=== PATIENT | male | born 1985 | race Caucasian/White ===

== ENCOUNTER → 2016-07-23 | Outpatient (CLI) | payer BC ==
--- NOTE | 2016-07-26 12:44 | CT ---
EXAM DATE: 07/23/16 PATIENT'S AGE: 31 Patient: CORINA RUBIO Facility: [place], [place] Site . Site : 1985 Study: CT Extremity Left WRIST WO CONT [id number] 5:55:49 PM Ordering Physician: Bruno Keith Final Report: HISTORY: Navicular fracture. Left wrist injury 04/02/2017. Technique: CT left wrist without contrast. Comparison: Radiographs 05/19/2016, 04/25/2016. 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 Portions of the fracture margins are sclerotic. No mature osseous bridging. A few small osseous fragments at the fracture margin. Mild volar tilt of the distal pole of the scaphoid results in 2 mm diastasis of the scaphoid fracture fragments dorsally. Subtle linear lucency through portions of the proximal triquetrum bone. No other fracture. Small osteophytes of the distal radius at the radioscaphoid articulation. Joint spaces are otherwise preserved. No erosions. No lytic or blastic bone lesions. Soft tissues are unremarkable. Impression: 1. 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 2. Mild radioscaphoid joint degenerative changes. 2. Mostly healed nondisplaced fracture of the proximal triquetrum. Dictated by Dell Mcdaniel MD @ Jul 26 2016 10:30AM (Electronic Signature) Report Signed by Proxy and Original Signed Document filed in the Medical Record. ANDRES
== END ==
LOC: MW.DI 16:04
PROVIDERS: ATTEND Plastic Surgery
DX: S62.022A Displaced fracture of middle third of navicular [scaphoid] bone of left wrist, initial encounter for closed fracture (principal)
CPT/HCPCS: 73200-26-LT; 73200-LT

== ENCOUNTER → 2016-08-19 | Outpatient (CLI) | payer BC ==
--- NOTE | 2016-08-19 15:49 | CR ---
EXAMINATION: Left hand fifth digit HISTORY: crush injury COMPARISON: None TECHNIQUE: 3 views FINDINGS/IMPRESSION: There is no acute osseous abnormality, dislocation, or fracture identified. Bon e mineralization and joint spaces appear normal.
== END | disposition home or self-care (01) ==
LOC: MW.CHFP 11:55
PROVIDERS: ATTEND Student in an Organized Health Care Education/Training Program
DX: S67.10XA Crushing injury of unspecified finger(s), initial encounter (principal)
CPT/HCPCS: 73140-26-F4; 73140-F4

== ENCOUNTER 2016-09-24 06:29 | Day surgery (SDC) | payer BC ==
--- NOTE | 2016-06-01 16:40 | PCM.PREANE ---
Preanesthetic Assessment - ANESTHESIA/TRANSFUSION/FAMILY HX Anesthesia/Transfusion History: No Prior Transfusion(s), Prior Anesthesia (knee scope, hernia: no anesthesia issues noted) Type of Anesthesia Reaction: Denies: Allergy, Anesthesia Awareness, Excessive Somnolence, Excessive Nausea/Vomiting, Excessive Itching, Excessive Shivering, Malignant Hyperthermia, Malignant Hyperthermia, Family History, Pseudocholinesterase Deficiency, Pseudocholinesterase Deficiency, Family History of, Urinary Retention, Unknown, Other (see below) Family History of Anesthesia Reaction: No Type of Transfusion Reactions: Denies: Anaphylaxis, Bloody Urine, Chills, Fainting/Dizziness, Fever, Flank Pain, Hemolytic Reaction, Hives, Rash, Transfusion Related Acute Lung Injury, Unknown, Other (see below) - REVIEW OF SYSTEMS Constitutional: Reports: no symptoms (obese) [employer] 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) Respiratory: Reports: no symptoms (asthmatic who smokes and chews) Cardiovascular: Reports: no symptoms GI: Reports: no symptoms Other: Reports: none - PHYSICAL ASSESSMENT Height: 1.88 m Weight: 113.398 kg ASA Class: 3 - LAB Values: none - ALLERGIES Allergies/Adverse Reactions: Allergies Allergy/AdvReac Type Severity Reaction Status Date / Time latex Allergy Wheezing Verified 06/01/16 11:25 - BLOOD Blood Available: No Product(s) Available: None - ANESTHESIA PLAN Preop Beta Sandy: No Anesthesia Type Planned: MAC PreAnesthesia Questionnaire HEENT History: Reports: Allergic rhinitis Cardiovascular History: Reports: None Respiratory History: Reports: Asthma Gastrointestinal History: Reports: None Genitourinary History: Reports: None Musculoskeletal History: Reports: Fracture Other Musculoskeletal History: foot Neurological History: Reports: None Psychiatric History: Reports: ADD Endocrine/Metabolic History: Reports: Obesity/BMI 30+ Hematologic History: Reports: None Oncologic (Cancer) History: Reports: None Dermatologic History: Reports: None - Infectious Disease History Infectious Disease History: Reports: Chicken pox - Past Surgical History Head Surgeries/Procedures: Reports: None HEENT Surgical History: Reports: None Cardiovascular Surgical History: Reports: None Respiratory Surgical History: Reports: None GI Surgical History: Reports: Hernia repair/other Other GI Surgeries/Procedures: as a child, unknown type Male Surgical History: Reports: None Endocrine Surgical History: Reports: None Neurological Surgical History: Reports: None Musculoskeletal Surgical History: Reports: Arthroscopic knee Oncologic Surgical History: Reports: None - SUBSTANCE USE Smoking Status *Q: Current Every Day Smoker Tobacco Use Within Last Twelve Months: Smokeless Tobacco Second Hand Smoke Exposure: No Days Per Week of Alcohol Use: 1 Number of Drinks Per Day: 4 Total Drinks Per Week: 4 Recreational Drug Use History: No - HOME MEDS Home Medications: Home Meds Albuterol Sulfate [Proair Hfa] 1 - 2 puff INH ASDIRECTED PRN 05/31/16 [History] Beclomethasone Dipropionate [Qnasl] 1 spray NASBOTH ACLUNCH 05/31/16 [History] Olopatadine HCl 1 drop EYEBOTH BID 05/31/16 [History] Lisdexamfetamine Dimesylate [Vyvanse] 1 tab PO DAILY 06/01/16 [History] - CURRENT (IN HOUSE) MEDS Current Meds: Current Medications Acetaminophen/Hydrocodone Bitart ([place] 325-5 Mg) 1 tab PO Q4H PRN PRN Reason: Pain Bupivacaine HCl/Epinephrine Bitart (Marcaine 0.25%/Epinephrine 1:200,000) 10 ml INJECT ONETIME ONE Stop: 06/02/16 08:57 Lactated Ringer's (Ringers, Lactated) 1,000 mls @ 125 mls/hr IV ASDIRECTED [facility] Cefazolin Sodium/Dextrose 2 gm (/ Premix) 50 mls @ 100 mls/hr IV ONETIME ONE Stop: 06/02/16 09:25
[~2016-09-24 06:29] MED LIST: Acetaminophen/HYDROcodone 325-5 MG Tab PO PRN; Bupivacaine 0.25%/EPINEPHrine 1:200,000 10 ML SDV INJECT ONE; Lactated Ringers 1,000 ML IV SCH; ceFAZolin 2 GM in Premix Bag 1 BAG IV ONE
--- NOTE | 2016-09-24 06:54 | PCM.PREANE ---
Preanesthetic Assessment - Anesthesia/Transfusion/Family Hx Anesthesia History: Prior Anesthesia Without Reaction Family History of Anesthesia Reaction: No Transfusion History: No Prior Transfusion(s) Type of Transfusion Reactions: Denies: Anaphylaxis, Bloody Urine, Chills, Fainting/Dizziness, Fever, Flank Pain, Hemolytic Reaction, Hives, Rash, Transfusion Related Acute Lung Injury, Unknown, Other (see below) - Review of Systems General: No Symptoms Pulmonary: No Symptoms Cardiovascular: No Symptoms Gastrointestinal: No symptoms Neurological: No Symptoms Other: Reports: None - Physical Assessment Height: 1.88 m Weight: 109.769 kg ASA Class: 2 Mental Status: Alert & Oriented x3 Airway Class: Mallampati = 2 Dentition: Reports: Normal Dentition (lower retainer) Thyro-Mental Finger Breadths: 3 Mouth Opening Finger Breadths: 3 ROM/Head Extension: Full Lungs: Clear to auscultation, Normal respiratory effort Cardiovascular: Regular Rate, Regular Rhythm - Allergies Allergies/Adverse Reactions: Allergies Allergy/AdvReac Type Severity Reaction Status Date / Time latex Allergy Nausea Verified 09/22/16 08:16 - Blood Blood Available: No Product(s) Available: None - Anesthesia Plan Pre-Op Medication Ordered: None - Acknowledgements Anesthesia Type Planned: General Anesthesia Pt an Appropriate Candidate for the Planned Anesthesia: Yes Alternatives and Risks of Anesthesia Discussed w Pt/Guardian: Yes Pt/Guardian Understands and Agrees with Anesthesia Plan: Yes PreAnesthesia Questionnaire HEENT History: Reports: Allergic Rhinitis Cardiovascular History: Reports: None, Other (See Below) (h/o hypertension) Respiratory History: Reports: Asthma (mild) Gastrointestinal History: Reports: None Genitourinary History: Reports: None Musculoskeletal History: Reports: Fracture Other Musculoskeletal History: left scafoid bone, foot Neurological History: Reports: None, Other (See Below) (chronic fatigue) Psychiatric History: Reports: ADD Endocrine/Metabolic History: Reports: Obesity/BMI 30+ Hematologic History: Reports: None Oncologic (Cancer) History: Reports: None Dermatologic History: Reports: None - Infectious Disease History Infectious Disease History: Reports: Chicken Pox - Past Surgical History Head Surgeries/Procedures: Reports: None HEENT Surgical History: Reports: None Cardiovascular Surgical History: Reports: None Respiratory Surgical History: Reports: None GI Surgical History: Reports: Hernia Repair/Other Other GI Surgeries/Procedures: as a child, unknown type Male Surgical History: Reports: None Endocrine Surgical History: Reports: None Neurological Surgical History: Reports: None Musculoskeletal Surgical History: Reports: Arthroscopic Knee (right knee) Oncologic Surgical History: Reports: None - SUBSTANCE USE Smoking Status *Q: Current Every Day Smoker Tobacco Use Within Last Twelve Months: Smokeless Tobacco Second Hand Smoke Exposure: No Days Per Week of Alcohol Use: 1 Number of Drinks Per Day: 4 Total Drinks Per Week: 4 Recreational Drug Use History: No - HOME MEDS Home Medications: Home Meds Albuterol Sulfate [Proair Hfa] 1 - 2 puff INH ASDIRECTED PRN 05/31/16 [History] Olopatadine HCl 1 drop EYEBOTH ASDIRECTED PRN 05/31/16 [History] Lisdexamfetamine Dimesylate [Vyvanse] 1 tab PO DAILY 06/01/16 [History] - CURRENT (IN HOUSE) MEDS Current Meds: Current Medications Hydrocodone Bitart/Acetaminophen ([place] 325-5 Mg) 1 tab PO Q4H PRN PRN Reason: Pain Bupivacaine HCl/Epinephrine Bitart (Marcaine 0.25%/Epinephrine 1:200,000) 10 ml INJECT ONETIME ONE Stop: 09/24/16 08:01 Cefazolin Sodium/Dextrose 2 gm (/ Premix) 50 mls @ 100 mls/hr IV ONETIME ONE Stop: 09/24/16 07:59 Lactated Ringer's (Ringers, Lactated) 1,000 mls @ 125 mls/hr IV ASDIRECTED [facility] Discontinued Medications Acetaminophen/Hydrocodone Bitart ([place] 325-5 Mg) 1 tab PO Q4H PRN PRN Reason: Pain Bupivacaine HCl/Epinephrine Bitart (Marcaine 0.25%/Epinephrine 1:200,000) 10 ml INJECT ONETIME ONE Stop: 06/02/16 08:57 Lactated Ringer's (Ringers, Lactated) 1,000 mls @ 125 mls/hr IV ASDIRECTED [facility] Cefazolin Sodium/Dextrose 2 gm (/ Premix) 50 mls @ 100 mls/hr IV ONETIME ONE Stop: 06/02/16 09:25
[2016-09-24] MEDS ORDERED: Bupivacaine 0.25%/EPINEPHrine 1:200,000 10 ML SDV ONE (07:17)
[2016-09-24] MEDS ORDERED: Propofol 200 MG/20 ML SDV ONE (07:29)
[2016-09-24] MEDS ORDERED: Midazolam 1 MG/ML 2 ML SDV ONE (07:29)
[2016-09-24] MEDS ORDERED: Ondansetron 4 MG/2 ML SDV ONE (07:29)
[2016-09-24] MEDS ORDERED: fentaNYL 250 MCG/5 ML SDV ONE (07:29)
[2016-09-24] MEDS ORDERED: ceFAZolin 2 GM in Premix Bag 1 BAG IV ONE (07:30)
[2016-09-24] MEDS ORDERED: Acetaminophen/HYDROcodone 325-5 MG Tab PO PRN (08:00)
[2016-09-24] MEDS ORDERED: Lactated Ringers 1,000 ML IV SCH (08:00)
[2016-09-24] MEDS ORDERED: Bupivacaine 0.25%/EPINEPHrine 1:200,000 10 ML SDV INJECT ONE (08:00)
[2016-09-24] MEDS ORDERED: Dexamethasone 4 MG/ML 5 ML MDV ONE (08:01)
[2016-09-24] MEDS ORDERED: Ketorolac 30 MG/ML SDV ONE (08:51)
--- NOTE | 2016-09-24 09:18 | PCM.POSTAN ---
POST ANESTHESIA ASSESSMENT - MENTAL STATUS Mental Status: alert, oriented - RESPIRATORY Respiratory Status: respiratory rate WNL, airway patent, O2 saturation stable - CARDIOVASCULAR CV Status: pulse rate WNL, blood pressure stable - GASTROINTESTINAL GI Status: no symptoms - PAIN Pain Score: 3 - POST OP HYDRATION Hydration Status: adequate & stable - OBSERVATIONS Free Text/Narrative:: no anesthesia problems
--- NOTE | 2016-09-24 11:12 | CR ---
EXAMINATION: Right wrist HISTORY: Scaphoid nonunion COMPARISON: CT dated 07/23/2016 TECHNIQUE: 6 fluoroscopic images provided FINDINGS/IMPRESSION: Operative control films demonstrate a single screw fixating the mid scaphoid fr acture. Position and alignment appear near anatomic.
[2016-09-24 11:34] VITALS: BP 120/65
--- NOTE | 2016-09-27 16:40 | PCM.OPNOTE ---
- General Post-Op/Procedure Note Date of Surgery/Procedure: 10/01/16 Operative Procedure(s): screw fixation of left scaphoid fracture Pre Op Diagnosis: left scaphoid nonunion Post-Op Diagnosis: Same Anesthesia Technique: General LMA, Local Primary Surgeon: Inna Carr Blogs Manager: Neris Wlels Complications: None Condition: Good Free Text/Narrative:: [id number]
--- NOTE | 2016-09-28 06:05 | OR ---
SURGEON: MARIA ESTHER MOFFETT MD DATE OF PROCEDURE: PREOPERATIVE DIAGNOSIS: Left scaphoid nonunion with inadequate immobilization. POSTOPERATIVE DIAGNOSIS: Left scaphoid nonunion with inadequate immobilization. PROCEDURES: Screw fixation of left scaphoid fracture. WORK ADJUSTMENT INSTRUCTOR: TWIN Mcgergor. INDICATION: Mr. Arvizu is seen today in evaluation for left scaphoid fracture. He initially was seen by us several months after having sustained a fracture. It was determined at that time he likely had a nonhealing fracture or a nonunion. CT scan did demonstrate that. He was initially scheduled for surgery back in June and he declined to proceed. At this point, he is still having pain, continued problems, and would like to proceed with fixation. Risks and benefits were discussed with him and he was in agreement to proceed. Risks were including, but not limited to, bleeding, infection, damage to underlying or overlying structures, possible need for future interventions, and possible scarring. PROCEDURE IN DETAIL: After informed consent was obtained and placed on the chart, the patient was brought to the operating theater and in supine position. After adequate general anesthetic was obtained by the anesthesiologist and her nurse operations professional, the area was prepped and draped and a time-out was completed to confirm side and site. Attention was then paid to the volar scaphoid tubercle. The K-wire was used from the TriMed compression screw system from [employer]. This was used to drag the K-wire down the midline of the scaphoid itself. This was completed on direct visualization and fluoroscopy was used to confirm it in all three planes and once this was completed, a stab incision was made over the pin site. The screw was then placed over the K-wire through the open incision and the guide was placed against the bone. Measurements were taken and appropriate size 24 mm TriMed compression screw was selected and was placed over the K-wire and screwed in place first using the progressive screw and then the compression head was lagged. This was done using a standard [employer] operative technique for the TriMed System. Once the screw had been placed through the incision, attention was then paid to the direct visualization and confirmation of appropriate placement of the screw. Once this was completed, the area was copiously irrigated and a small size 4-0 Monocryl stitch was placed in the area. This was dressed with Xeroform, fluffs, and a Kerlix gauze dressing. The patient was placed in a short-arm thumb spica splint. The patient tolerated this well. All counts of needles were correct at the end the case. FOLLOWUP INSTRUCTIONS: The patient will see us in approximately 2 weeks for cast placement sooner if there are any problems, questions, or concerns. He was given a prescription for pain control. HEGGTHE / HAJAL /[id number]
== END 2016-09-24 10:07 | disposition home or self-care (01) ==
LOC: MW.SDS 06:29
PROVIDERS: ATTEND Plastic Surgery
DX: S62.002K Unspecified fracture of navicular [scaphoid] bone of left wrist, subsequent encounter for fracture with nonunion (principal); J45.909 Unspecified asthma, uncomplicated; I10 Essential (primary) hypertension; Z87.891 Personal history of nicotine dependence; Z98.890 Other specified postprocedural states; Z79.899 Other long term (current) drug therapy
CPT/HCPCS: 25628; 76000; A9270; J1100; J1885; J2250; J2405; J3010; J7120; 01830; C1713; J2704

== ENCOUNTER 2019-01-09 18:32 | Emergency (ER) | payer SELFPAY ==
--- NOTE | 2019-01-09 19:02 | EDM.PDOC ---
ED HPI GENERAL MEDICAL PROBLEM - General Chief Complaint: Neuro Symptoms/Deficits Stated Complaint: UNKNOWN Time Seen by Provider: 01/09/19 18:43 Source of Information: Reports: Patient History Limitations: Reports: No Limitations - History of Present Illness INITIAL COMMENTS - FREE TEXT/NARRATIVE: HISTORY AND PHYSICAL: History of present illness: Patient is a 33-year-old male presents to the ED today with concern of an episode of blurred vision and tingling of his left arm and left leg that occurred an hour prior to arrival to the ED. Currently in the ED, patient states the symptoms have resolved other than some residual tingling in his left hand. Patient states the blurred vision has completely resolved as well. Patient denies any other symptoms or concerns at this time. Patient denies any health history. Patient denies fever, chills, chest pain, shortness of breath, or cough. Denies headache, neck stiff ness, syncope, or near syncope. Denies nausea, vomiting, abdominal pain, diarrhea, constipation, or dysuria. Has not noted any blood in urine or stool. Patient has been eating and drinking appropriately. Review of systems: As per history of present illness and below otherwise all systems reviewed and negative. Past medical history: As per history of present illness and as reviewed below otherwise noncontributory. Surgical history: As per history of present illness and as reviewed below otherwise noncontributory. Social history: See social history for further information Family history: As per history of present illness and as reviewed below otherwise noncontributory. Physical exam: General: Patient is alert, oriented, and in no acute distress. Patient sitting comfortably on exam table. HEENT: Atraumatic, normocephalic, pupils equal and reactive bilaterally, negative for conjunctival pallor or scleral icterus, mucous membranes moist, TMs normal bilaterally, throat clear, neck supple, nontender, trachea midline. No drooling or trismus noted. No meningeal signs. No hot potato voice noted. Visual acuity was performed upon arrival to the ED. Lungs: Clear to auscultation, breath sounds equal bilaterally, chest nontender. Heart: S1S2, regular rate and rhythm without overt murmur Abdomen: Soft, nondistended, nontender. Negative for masses or hepatosplenomegaly. Negative for costovertebral tenderness. Pelvis: Stable nontender. Genitourinary: Deferred. Rectal: Deferred. Skin: Intact, warm, dry. No lesions or rashes noted. Extremities: Atraumatic, negative for cords or calf pain. Neurovascular unremarkable. Neuro: Awake, alert, oriented. Cranial nerves II through XII unremarkable. Cerebellum unremarkable. Motor and sensory unremarkable throughout. Exam nonfocal. Notes: Admission for observation was offered to patient but he declines at this time. All risks versus benefits discussed with patient and expresses understanding. Voices understanding and is agreeable to plan of care. Denies any further questions or concerns at this time. Diagnostics: CBC, CMP, UA, EKG, troponin, chest x-ray, head CT Therapeutics: None Prescription: None Impression: Paresthesia, resolved Blurred vision, resolved Plan: 1. You can alternate ibuprofen and Tylenol as checked her for pain and discomfort. 2. Follow-up with your primary care provider and neurology as discussed. Return to the ED as needed and as discussed. Definitive disposition and diagnosis as appropriate pending reevaluation and review of above. - Related Data Allergies Allergy/AdvReac Type Severity Reaction Status Date / Time latex Allergy Nausea Verified 01/09/19 18:49 Home Meds: Home Meds Albuterol Sulfate [Proair Hfa] 1 - 2 puff INH ASDIRECTED PRN 05/31/16 [History] Olopatadine HCl 1 drop EYEBOTH ASDIRECTED PRN 05/31/16 [History] Lisdexamfetamine Dimesylate [Vyvanse] 1 tab PO DAILY 06/01/16 [History] Montelukast Sodium 10 mg PO DAILY 01/09/19 [History] Testosterone Cypionate 1 dose IM WEEKLY 01/09/19 [History] Past Medical History HEENT History: Reports: Allergic Rhinitis Cardiovascular History: Reports: None Respiratory History: Reports: Asthma Gastrointestinal History: Reports: None Genitourinary History: Reports: None Musculoskeletal History: Reports: Fracture Other Musculoskeletal History: left scafoid bone, foot Neurological History: Reports: None, Other (See Below) Psychiatric History: Reports: ADD Endocrine/Metabolic History: Reports: Obesity/BMI 30+ Hematologic History: Reports: None Oncologic (Cancer) History: Reports: None Dermatologic History: Reports: None - Infectious Disease History Infectious Disease History: Reports: Chicken Pox - Past Surgical History Head Surgeries/Procedures: Reports: None HEENT Surgical History: Reports: None Cardiovascular Surgical History: Reports: None Respiratory Surgical History: Reports: None GI Surgical History: Reports: Hernia Repair/Other Other GI Surgeries/Procedures: as a child, unknown type Male Surgical History: Reports: None Endocrine Surgical History: Reports: None Neurological Surgical History: Reports: None Musculoskeletal Surgical History: Reports: Arthroscopic Knee Oncologic Surgical History: Reports: None Social & Family History - Family History Family Medical History: Noncontributory - Tobacco Use Smoking Status *Q: Former Smoker Used Tobacco, but Quit: Yes Month/Year Tobacco Last Used: 2005 - Caffeine Use Caffeine Use: Reports: Coffee - Recreational Drug Use Recreational Drug Use: No ED ROS GENERAL - Review of Systems Review Of Systems: ROS reveals no pertinent complaints other than HPI. ED EXAM, GENERAL - Physical Exam Exam: See Below (See dictation) Course - Vital Signs Last Recorded V/S: Last Vital Signs Temp 35.9 C 01/09/19 20:26 Pulse 58 L 01/09/19 20:26 Resp 18 01/09/19 20:26 BP 139/92 H 01/09/19 20:26 Pulse Ox 100 01/09/19 20:26 - Orders/Labs/Meds Orders: Active Orders 24 hr Category Date Time Status Orthostatic Vital Signs [RC] ASDIRECTED Care 01/09/19 18:49 Active Labs: Laboratory Tests 01/09/19 01/09/19 01/09/19 Range/Units 18:55 18:55 19:35 WBC 7.02 (4.0-11.0) K/uL RBC 5.18 (4.50-5.90) M/uL Hgb 16.2 (13.0-17.0) g/dL Hct 45.4 (38.0-50.0) % MCV 87.6 (80.0-98.0) fL MCH 31.3 (27.0-32.0) pg MCHC 35.7 (31.0-37.0) g/dL RDW Std Deviation 39.8 (28.0-62.0) fl RDW Coeff of Aviva 12 (11.0-15.0) % Plt Count 230 (150-400) K/uL MPV 10.40 (7.40-12.00) fL Neut % (Auto) 56.5 (48.0-80.0) % Lymph % (Auto) 31.6 (16.0-40.0) % [place] % (Auto) 9.3 (0.0-15.0) % Eos % (Auto) 2.3 (0.0-7.0) % Baso % (Auto) 0.3 (0.0-1.5) % Neut # (Auto) 4.0 (1.4-5.7) K/uL Lymph # (Auto) 2.2 (0.6-2.4) K/uL [place] # (Auto) 0.7 (0.0-0.8) K/uL Eos # (Auto) 0.2 (0.0-0.7) K/uL Baso # (Auto) 0.0 (0.0-0.1) K/uL Nucleated RBC % 0.0 /100WBC Nucleated RBCs # 0 K/uL Sodium 140 (136-148) mmol/L Potassium 3.7 (3.5-5.1) mmol/L Chloride 104 (98-107) mmol/L Carbon Dioxide 27.7 (21.0-32.0) mmol/L BUN 7 (7.0-18.0) mg/dL Creatinine 1.0 (0.8-1.3) mg/dL Est Cr Clr Drug Dosing 122.16 mL/min Estimated GFR (MDRD) > 60.0 ml/min Glucose 88 (74-106) mg/dL Calcium 9.3 (8.5-10.1) mg/dL Total Bilirubin 1.1 H (0.2-1.0) mg/dL AST 25 (15-37) IU/L ALT 53 (14-63) IU/L Alkaline Phosphatase 73 (46-116) U/L Troponin I < 0.050 (0.000-0.056) ng/mL Total Protein 7.4 (6.4-8.2) g/dL Albumin 4.0 (3.4-5.0) g/dL Globulin 3.4 (2.6-4.0) g/dL Albumin/Globulin Ratio 1.2 (0.9-1.6) Urine Color YELLOW Urine Appearance CLEAR Urine pH 7.0 (5.0-8.0) Ur Specific [place] <= 1.005 (1.001-1.035) Urine Protein NEGATIVE (NEGATIVE) mg/dL Urine Glucose (UA) NEGATIVE (NEGATIVE) mg/dL Urine Ketones NEGATIVE (NEGATIVE) mg/dL Urine Occult Blood NEGATIVE (NEGATIVE) Urine Nitrite NEGATIVE (NEGATIVE) Urine Bilirubin NEGATIVE (NEGATIVE) Urine Urobilinogen 0.2 (<2.0) EU/dL Ur Leukocyte Esterase NEGATIVE (NEGATIVE) Departure - Departure Time of Disposition: 20:17 Disposition: Home, Self-Care 01 Clinical Impression: Paresthesias, Blurred vision - Discharge Information Instructions: Paresthesia, [id number] Referrals: PCP,Unknown [Primary Care Provider] - Forms: ED Department Discharge Additional Instructions: The following information is given to patients seen in the emergency department who are being discharged to home. This information is to outline your options for follow-up care. We provide all patients seen in our emergency department with a follow-up referral. The need for follow-up, as well as the timing and circumstances, are variable depending upon the specifics of your emergency department visit. If you don't have a primary care physician on staff, we will provide you with a referral. We always advise you to contact your personal physician following an emergency department visit to inform them of the circumstance of the visit and for follow-up with them and/or the need for any referrals to a consulting specialist. The emergency department will also refer you to a specialist when appropriate. This referral assures that you have the opportunity for follow-up care with a specialist. All of these measure are taken in an effort to provide you with optimal care, which includes your follow-up. Under all circumstances we always encourage you to contact your private physician who remains a resource for coordinating your care. When calling for follow-up care, please make the office aware that this follow-up is from your recent emergency room visit. If for any reason you are refused follow-up, please contact the [facility] Emergency Department at and asked to speak to the emergency department charge nurse. [facility] [address] [place] [id number] [facility] [address] [place] [address] [facility] [place] [facility] [address], [address] [place] [address] 1. You can alternate ibuprofen and Tylenol as checked her for pain and discomfort. 2. Follow-up with your primary care provider and neurology as discussed. Return to the ED as needed and as discussed. - My Orders Last 24 Hours: My Active Orders 01/09/19 18:49 Orthostatic Vital Signs [RC] ASDIRECTED - Assessment/Plan Last 24 Hours: My Active Orders 01/09/19 18:49 Orthostatic Vital Signs [RC] ASDIRECTED
[2019-01-09 19:30] LABS: BLOOD UREA NITROGEN,BUN 7 mg/dL (7.0-18.0); CARBON DIOXIDE,CO2 27.7 mmol/L (21.0-32.0); CHLORIDE,CL 104 mmol/L (98-107); GLUCOSE RANDOM 88 mg/dL (74-106); POTASSIUM,K 3.7 mmol/L (3.5-5.1); SODIUM,NA 140 mmol/L (136-148)
--- NOTE | 2019-01-09 19:32 | CR ---
INDICATION: dizziness TECHNIQUE: Chest 1 view. COMPARISON: None. FINDINGS: Cardiovascular and mediastinum: Heart size and vasculature are normal in caliber and appearance. Mediastinum is within normal limits. Lungs and pleural space: Lungs are clear. No sign of infiltrate or mass. No sign of pleural effusion. No pneumothorax. Bones and soft tissues: No significant findings. IMPRESSION: Unremarkable chest. Dictated by: Gabriel Streeter MD @ 01/09/2019 19:30:24 (Electronically Signed)
--- NOTE | 2019-01-09 19:59 | CT ---
INDICATION: BLURRED VISION AND NUMBNESS IN LIPS, TONGUE, LT ARM AND LT LEG CT HEAD WITHOUT CONTRAST TECHNIQUE: Multiple axial CT images were performed through the head without intravenous contrast administration. COMPARISON: No previous studies are currently available for comparison. FINDINGS: No acute intracranial hemorrhage is identified. No extra-axial collections are evident and there is no mass effect or midline shift. Ventricles are normal in size and configuration. Brain parenchyma appears normal with unremarkable ferreira-white differentiation. Osseous structures are within normal limits and no fractures are seen. Included portions of the paranasal sinuses and mastoid air cells are normally aerated. IMPRESSION: Normal non-contrast head CT. TERESO HENAO MD [facility] Dictated by: Ilya Henao MD @ 01/09/2019 19:58:51 (Electronically Signed)
[2019-01-09 20:30] VITALS: BP 139/92
== END 2019-01-09 20:26 | disposition home or self-care (01) ==
LOC: MW.ED 18:32
DX: H53.8 Other visual disturbances (principal); R20.2 Paresthesia of skin; J45.909 Unspecified asthma, uncomplicated; Z91.040 Latex allergy status; Z79.899 Other long term (current) drug therapy; Z87.891 Personal history of nicotine dependence
CPT/HCPCS: 36415; 70450; 70450-26; 71045; 71045-26; 80053; 81003; 84484; 85025; 93005; 99284-25